=== PATIENT | male | born 1960 | race Native Hawaiian/Other Pacific Islander ===

== ENCOUNTER 2021-05-12 19:40 | Emergency (ER) | payer OTHER ==
[~2021-05-12] VITALS: Ht 182.9 cm; Wt 176.9 kg
[2021-05-12 20:16] LABS: PLATELET COUNT 101 K/uL (142-355)
[2021-05-12 20:38] LABS: POTASSIUM 3.7 mmol/L (3.6-5.2)
[2021-05-12 21:40] VITALS: BP 133/63; TEMP 98.7
[2021-05-13] MEDS ORDERED: DECUBI-VITE PO (01:12)
[2021-05-13] MEDS ORDERED: DULO30CA PO (01:17)
[2021-05-13] MEDS ORDERED: KP FOLIC ACID1 MG PO (01:19)
[2021-05-13] MEDS ORDERED: FURO40TA93 PO (01:19)
[2021-05-13] MEDS ORDERED: [UNRECOGNIZED DRUG - OTHER] PO (01:24)
[2021-05-13] MEDS ORDERED: HYDROCORTISONE12 TOP (01:31)
[2021-05-13] MEDS ORDERED: GENERLAC10 GM/15 M PO (01:33)
[2021-05-13] MEDS ORDERED: LINZESS145 MCG PO (01:36)
[2021-05-13] MEDS ORDERED: CLARITIN10 M1 PO (01:37)
[2021-05-13] MEDS ORDERED: LYRICA 100 MG100 MG PO (01:44)
[2021-05-13] MEDS ORDERED: MORP30TA10 PO (01:48)
[2021-05-13] MEDS ORDERED: PANTOPRAZOLE SO40 M1 PO (01:52)
[2021-05-13] MEDS ORDERED: POTASSIUM CHLO20 MEQ PO (01:55)
[2021-05-13] MEDS ORDERED: SPIR100T7 PO (01:59)
[2021-05-13] MEDS ORDERED: VITAMIN B-121000 MC2 PO (02:00)
[2021-05-13] MEDS ORDERED: TRAZODONE HYDR150 MG PO (02:00)
[2021-05-13] MEDS ORDERED: XIFAXAN550 MG PO (02:02)
== END 2021-05-12 21:50 | disposition still patient (30) ==
LOC: ED 19:40
PROVIDERS: Emergency Medicine
DX: R46.89 Other symptoms and signs involving appearance and behavior (principal); K74.69 Other cirrhosis of liver; J44.9 Chronic obstructive pulmonary disease, unspecified; I50.9 Heart failure, unspecified; I10 Essential (primary) hypertension; I73.89 Other specified peripheral vascular diseases; E66.8 Other obesity; Z11.52 Encounter for screening for COVID-19; Z04.6 Encounter for general psychiatric examination, requested by authority
CPT/HCPCS: 36415; 80053; 81000; 85027; 87635; 93005; 99283; U0003